=== PATIENT | male | born 1985 | race Caucasian/White ===

== ENCOUNTER 2018-09-24 11:28 | Emergency (ER) | payer BC, OTHER ==
[~2018-09-24] VITALS: Ht 182.9 cm; Wt 81.7 kg
[2018-09-24 12:03] LABS: ABSOLUTE NEUTROPHILS 2.9 thou/uL (1.4-8.2); BASOPHILS 0.7 % (0.0-2.0); EOSINOPHILS 2.2 % (0.0-3.0); HEMATOCRIT 45.2 % (42.0-52.0); HEMOGLOBIN 16.1 gm/dL (14.0-18.0); LYMPHOCYTES 31.6 % (24.0-44.0); MCH 29.4 pg (26.0-34.0); MCHC 35.7 g/dL (28.0-37.0); MCV 82.4 fL (80.0-100.0); MONOCYTES 8.3 % (1.0-8.0); PLATELET COUNT 174 thou/uL (150-400); POLYS 57.2 % (36.0-66.0); RBC 5.48 mil/uL (4.50-6.00); RDW 13.6 % (10.5-14.5)
[2018-09-24 12:05] LABS: CALCIUM 9.4 mg/dL (8.5-10.1); CREATININE 0.9 mg/dL (0.7-1.3); POTASSIUM 3.7 mmol/L (3.5-5.1)
[2018-09-24 12:11] LABS: ALBUMIN 4.6 g/dL (3.4-5.0); TOTAL BILIRUBIN 0.5 mg/dL (<0.1-1.0); TOTAL PROTEIN 7.9 g/dL (6.4-8.2)
[2018-09-24 12:34] VITALS: BP 110/80
== END 2018-09-24 12:35 | disposition home or self-care (01) ==
LOC: ER 11:28
PROVIDERS: Emergency Medicine
DX: H53.8 Other visual disturbances (principal); R42 Dizziness and giddiness